=== PATIENT | female | born 1995 | race African-American/Black ===

== ENCOUNTER 2019-01-12 15:33 | Emergency (ER) | payer MEDICAID ==
[~2019-01-12] VITALS: Ht 154.9 cm; Wt 47.0 kg
[2019-01-12] MEDS ORDERED: HYDROCODONE/ACETAMINOPHEN 5/325MG TABLET PO ONE (16:15)
[2019-01-12 16:21] VITALS: BP 122/71
[2019-01-12] MEDS ORDERED: BACITRACIN ZINC OINT UDPKT TOP ONE (17:15)
== END 2019-01-12 17:15 | disposition home or self-care (01) ==
LOC: ER 15:33
DX: S51.811D Laceration without foreign body of right forearm, subsequent encounter (principal); J45.909 Unspecified asthma, uncomplicated; F12.10 Cannabis abuse, uncomplicated; Z98.890 Other specified postprocedural states; X58.XXXD Exposure to other specified factors, subsequent encounter
CPT/HCPCS: 99283